=== PATIENT | female | born 1985 | race Caucasian/White ===

== ENCOUNTER → 2024-08-17 07:24 | Outpatient (REF) | payer OTHER, SELFPAY | LOC: RAD 07:24 | PROVIDERS: ATTENDING PHYSICIAN Specialist; FAMILY PHYSICIAN Family Medicine | DX: N20.0 Calculus of kidney (principal) | CPT/HCPCS: 76775 ==

== ENCOUNTER → 2024-09-09 11:43 | Outpatient (REF) | payer OTHER, SELFPAY | LOC: HWRAD 11:43 | PROVIDERS: ATTENDING PHYSICIAN Specialist; FAMILY PHYSICIAN Family Medicine | DX: N20.0 Calculus of kidney (principal) | CPT/HCPCS: 74150 ==

== ENCOUNTER 2024-10-15 06:03 | Day surgery (SDC) | payer OTHER, SELFPAY ==
[2024-10-15 06:48] VITALS: BMI 33.2
[2024-10-15 06:51] VITALS: BP 109/75
[2024-10-15] MEDS: Pyridium 200 MG PO (07:00)
[2024-10-15] MEDS: NORMOSOL-R/PLASMALYTE-A 1000 IV (07:00)
[2024-10-15 08:15] VITALS: BP 109/75; BP 111/73
[2024-10-15 08:30] VITALS: BP 105/68
[2024-10-15 08:47] VITALS: BP 104/64
[2024-10-15 09:15] VITALS: BP 106/71
== END 2024-10-15 09:30 | disposition home or self-care (01) ==
LOC: SDS 06:03
PROVIDERS: ATTENDING PHYSICIAN Specialist
DX: N20.0 Calculus of kidney (principal)
CPT/HCPCS: 52356; 74018; 76000; 82365; C1894; C2617; J1580